=== PATIENT | female | born 1985 | race African-American/Black ===

== ENCOUNTER 2024-06-27 10:49 | Emergency (ER) | payer OTHER ==
[~2024-06-27] VITALS: Ht 170.2 cm; Wt 53.5 kg
[2024-06-27 11:15] VITALS: PULSE 100; RESP 18; TEMP 98; O2SAT 99
== END 2024-06-27 11:53 | disposition left against medical advice (07) ==
LOC: ER 11:24
DX: S00.83XA Contusion of other part of head, initial encounter (principal); R07.89 Other chest pain; R10.12 Left upper quadrant pain; Y04.8XXA Assault by other bodily force, initial encounter; Y92.89 Other specified places as the place of occurrence of the external cause
CPT/HCPCS: 99283